=== PATIENT | male | born 1955 | race Caucasian/White ===

== ENCOUNTER 2021-12-26 11:34 | Emergency (ER) | payer MEDICARE, OTHER ==
[2021-12-26] MEDS ORDERED: PERCOCET TABLET 5/325MG ONE (11:43)
[2021-12-26] MEDS ORDERED: PERCOCET TABLET 5/325MG PO ONE (11:56)
[2021-12-26] MEDS ORDERED: CEFAZOLIN 2 GM-D5W BAG** 2 GM/50 ML ML IV STA (12:55)
[2021-12-26] MEDS ORDERED: Adacel Vial IM ONE ×2 (12:55→13:13)
[2021-12-26] MEDS ORDERED: KEFZOL IV ONE (13:04)
--- NOTE | 2021-12-26 13:24 | ERPHSYRPT ---
- History of Present Illness Time Seen by Provider: 12/26/21 11:44 Source: patient Exam Limitations: no limitations Patient Subjective Stated Complaint: Finger injury Triage Nursing Assessment: Patient brought back to ED via w/c and transferred to bed per self. Patient A+O x3. Patient's skin pink, warm and dry. Patient states he was feeding wood into the wood splitter when the wood splitter cut his left hand, 5th digit (pinky). Patient complains of left hand, 5th digit pain 4/10. Left hand 5th digit noted to have open area to each side of finger due to pressure from wood splitter. Bruising noted to entire finger and nail. Wedding ring cut off of left hand ring finger due to being smashed. Physician History: 66 years old male [id number] presented in the ER with a laceration on the medial aspect of left fifth digit while he was splitting wood and the splinter got on his finger. There was bleeding initially, minimal oozing on presentation. Able to move his finger. Moderate intensity sharp pain e specially with movements and better with being still. Also has swelling of left ring finger with ring in place. Occurred: just prior to arrival Method of Injury: direct blow Quality: sharpness Severity of Pain-Max: moderate Severity of Pain-Current: moderate Extremities Pain Location: 5th finger: left Modifying Factors: Improves With: immobilization. Worsens With: movement Allergies/Adverse Reactions: No Known Drug Allergies Allergy (Unverified 12/26/21 11:42) Hx Tetanus, Diphtheria Vaccination/Date Given: No Hx Influenza Vaccination/Date Given: No Hx Pneumococcal Vaccination/Date Given: No Immunizations Up to Date: Yes Travel Risk - International Travel Have you traveled outside of the country in past 3 weeks: No - Coronavirus Screening Are you exhibiting any of the following symptoms?: No Close contact with a COVID-19 positive Pt in past 14-21 Days: No - Vaccine Status Have you recieved a Covid-19 vaccination: Yes Cryptologist: Moderna - Vaccination Dates Date of 2cond Vaccination (if applicable): January 2021 Comment: Booster September 2021 - Review of Systems Constitutional: No Symptoms Ears, Nose, & Throat: No Symptoms Respiratory: No Symptoms Cardiac: No Symptoms Abdominal/Gastrointestinal: No Symptoms Genitourinary Symptoms: No Symptoms Musculoskeletal: Injury Skin: Skin Lesions Neurological: No Symptoms Endocrine: No Symptoms Hematologic/Lymphatic: No Symptoms Immunological/Allergic: No Symptoms - Past Medical History Pertinent Past Medical History: Yes Neurological History: No Pertinent History ENT History: No Pertinent History Cardiac History: Hypertension Respiratory History: No Pertinent History Endocrine Medical History: No Pertinent History Musculoskeletal History: No Pertinent History GI Medical History: No Pertinent History History: No Pertinent History Psycho-Social History: No Pertinent History Male Reproductive Disorders: No Pertinent History - Past Surgical History Past Surgical History: No Neuro Surgical History: No Pertinent History Cardiac: No Pertinent History Respiratory: No Pertinent History Gastrointestinal: No Pertinent History Genitourinary: No Pertinent History Musculoskeletal: No Pertinent History Male Surgical History: No Pertinent History - Social History Smoking Status: Never smoker Exposure to second hand smoke: No Drug Use: none Patient Lives Alone: No - Nursing Vital Signs Nursing Vital Signs: Initial Vital Signs Temperature 98.0 F 12/26/21 11:44 Pulse Rate 83 12/26/21 11:44 Respiratory Rate 18 12/26/21 11:44 Blood Pressure 134/79 12/26/21 11:44 O2 Sat by Pulse Oximetry 98 12/26/21 11:44 Pain Scale Pain Intensity 0 - Physical Exam General Appearance: no apparent distress, alert Neck Exam: normal inspection, supple, full range of motion Cardiovascular/Respiratory Exam: normal breath sounds, regular rate/rhythm Back Exam: normal inspection, normal range of motion Hand Exam: laceration (9cm medial aspect of left 5th digit with active oozing without spurting. Still able to move finger at proximal and distal interphalangeal joint. Intact distal sensations. Also have a 2 cm laceration on the lateral aspect of pulp.), soft tissue tenderness, swelling (Left ring finger with ring in place.) Neuro/Tendon Exam: normal sensation, normal motor functions Mental Status Exam: alert, oriented x 3, cooperative Skin Exam: normal color SpO2 Interpretation: normal SpO2: 99 O2 Delivery: Room Air Procedures - Laceration/Wound Repair Left Medial Finger Time of Procedure: 13:02 Wound Location: Left, hand Wound Length (cm): 9 Wound's Depth, Shape: into muscle, irregular Wound Explored: clean Irrigated: Yes Hibiclens Prep: Yes Anesthesia: local, 1% Lidocaine Volume Anesthetic (ccs): 8 Wound Debrided: minimal Wound Repaired With: sutures Suture Size/Type: 4-0 Number of Sutures: 17 Layer Closure?: No Sterile Dressing Applied?: Yes Splint Applied?: Yes - Additional Procedures Progress: Left fourth digit ring cutting. With the help of ring cutter it is removed. Swelling improved. No bony tenderness. Ordered Tests: Active Orders 24 hr Category Date Time Status IV Insertion STAT Care 12/26/21 12:55 Active HAND (MINIMUM 3 VIEWS) Stat Exams 12/26/21 Taken Medication Summary Generic Name Dose Route Start Last Admin Trade Name Freq PRN Reason Stop Dose Admin Cefazolin Sodium/Dextrose 2 gm in 50 mls @ 100 mls/hr 12/26/21 12:55 12/26/21 13:07 Cefazolin 2 Gm-D5w Bag IV 12/26/21 13:24 100 ml/hr STAT STA 100 mls/hr Administration Discontinued Medications Generic Name Dose Route Start Last Admin Trade Name Freq PRN Reason Stop Dose Admin Diphtheria/Tetanus/Acell Pertussis 0.5 ml 12/26/21 12:55 12/26/21 13:14 Tdap --Diph,Pertuss(Acell),Tet Vac/Pf 0.5 Ml Vial IM 12/26/21 12:56 0.5 ml .ONCE ONE Administration Diphtheria/Tetanus/Acell Pertussis Confirm 12/26/21 13:13 Tdap --Diph,Pertuss(Acell),Tet Vac/Pf 0.5 Ml Vial Administered 12/26/21 13:14 Dose 0.5 ml IM .STK-MED ONE Cefazolin Sodium/Dextrose Confirm 12/26/21 13:04 Kefzol 1 Gm/50 Ml Premix Administered 12/26/21 13:05 Dose 2 gm in 100 mls @ ud IV .STK-MED ONE Oxycodone/Acetaminophen Confirm 12/26/21 11:43 Oxycodone Hcl/Apap 5 Mg/325 Mg Tablet Administered 12/26/21 11:44 Dose 1 tab .ROUTE .STK-MED ONE Oxycodone/Acetaminophen 1 tab 12/26/21 11:56 12/26/21 11:58 Oxycodone Hcl/Apap 5 Mg/325 Mg Tablet PO 12/26/21 11:57 1 tab STAT ONE Administration - Progress Progress: improved Progress Note: 12/26/21 13:23 Given symptomatic treatment for pain. Updated tetanus. Given a dose of Kefzol IV. Discussed with Dr. Rodriguez, who has reviewed x-ray films and does have a fracture distal phalanx and some chip fracture on the proximal phalanx as well. Recommended primary closure which is done. Placed in a splint, will give pain medication and antibiotics to go home and patient will follow up with hand surgery Tuesday. Counseled pt/family regarding: diagnosis, need for follow-up, rad results - Departure Departure Disposition: Home Clinical Impression: Finger laceration, Crushing injury of finger of left hand Condition: Stable Critical Care Time: No Referrals: JACINTO GARCIA MD [Primary Care Provider] - Follow Up with PCP/3 days GOPI GRAMAJO MD [NON-STAFF PHY W/O PRIVILEGES] - Follow up/PCP as directed (Call Tuesday for appointment later that day) Instructions: Crush Injury (DC), Common Finger Injuries (DC) Additional Instructions: Take pain medications as needed. Keep it elevated. Intermittent ice application. Follow-up with hand surgery for reevaluation Tuesday. Continue with antibiotics. Return to ER for excruciating pain, swelling, fever chills, bluish discoloration of the finger etc. Prescriptions: Hydrocodone/Acetaminophen [Hydrocodone-Acetamin 5-325 mg] 1 tab PO Q6HPRN PRN 3 Days #12 tablet MDD 4 PRN Reason: Pain Cephalexin Mh 500 mg [Keflex 500 mg] 500 mg PO TID #21 cap
[2021-12-26 13:43] VITALS: BP 141/82; PULSE 68; O2SAT 96
--- NOTE | 2021-12-26 18:05 | XRAY ---
Indication: 5th finger laceration. Comparison: None 3 view left hand demonstrates minimally displaced distal 5th phalanx tip and base fracture with soft tissue swelling. Elsewhere osteopenia and moderate/advanced degenerative changes all IP joints and [id number] metacarpal. Comment: Preliminary interpretation made by [facility]. No critical discrepancy.
== END 2021-12-26 13:47 | disposition home or self-care (01) ==
LOC: ED 11:34
DX: S61.217A Laceration without foreign body of left little finger without damage to nail, initial encounter (principal); W31.89XA Contact with other specified machinery, initial encounter; R22.9 Localized swelling, mass and lump, unspecified; I10 Essential (primary) hypertension; Z79.891 Long term (current) use of opiate analgesic
CPT/HCPCS: 12004; 36000; 73130; 90471; 90715; 99284; J0690; A9270-GY

== ENCOUNTER 2024-12-12 09:17 | Day surgery (SDC) | payer MEDICARE, OTHER ==
[2024-12-12] MEDS ORDERED: LIDOCAINE HCL 2% 100 MG/5 ML IJ ONE (09:18)
[2024-12-12] MEDS ORDERED: Depo-Medrol 40 MG/ML IM ONE (09:18)
[2024-12-12] MEDS ORDERED: propofoL IV ONE (10:20)
--- NOTE | 2024-12-12 12:12 | XRAY ---
Indication: Left L3-L5 MBB. Intraoperative fluoroscopy provided for 12 seconds. Single digital spot image submitted for interpretation demonstrates posterior needle tips projecting over the expected left L3-L5 nerve roots. Correlate with intraoperative findings/report.
--- NOTE | 2024-12-12 12:55 | XRAY ---
12 seconds of fluoroscopy was used in surgery for a left L3-L5 MBB.
== END 2024-12-12 11:00 | disposition home or self-care (01) ==
LOC: SDC-PAIN 09:17
PROVIDERS: ATTEND Psychiatry & Neurology Pain Medicine
DX: M47.816 Spondylosis without myelopathy or radiculopathy, lumbar region (principal)
CPT/HCPCS: 64493; 64494; 72020; 77002; J2704

== ENCOUNTER 2025-01-09 09:57 | Day surgery (SDC) | payer MEDICARE, OTHER ==
[2025-01-09] MEDS ORDERED: BUPIVACAINE 0.5% VIAL IJ ONE (09:58)
[2025-01-09] MEDS ORDERED: propofoL IV ONE (12:01)
--- NOTE | 2025-01-09 13:21 | XRAY ---
Indication: Left L3-L5 MBB. Intraoperative fluoroscopy provided for 10 seconds. Single digital spot image submitted for interpretation demonstrates posterior needle tips projecting over expected left L3-L5 nerve roots. Correlate with intraoperative findings/report.
--- NOTE | 2025-01-09 14:58 | XRAY ---
10 seconds of fluoroscopy was used in surgery for a left L3-L5 MBB.
== END 2025-01-09 12:35 | disposition home or self-care (01) ==
LOC: SDC-PAIN 09:57
PROVIDERS: ATTEND Psychiatry & Neurology Pain Medicine
DX: M47.816 Spondylosis without myelopathy or radiculopathy, lumbar region (principal)
CPT/HCPCS: 64493; 64494; 72020; 77002; J2704

== ENCOUNTER 2025-01-30 12:38 | Day surgery (SDC) | payer MEDICARE, OTHER ==
[2025-01-30] MEDS ORDERED: LIDOCAINE HCL 1% AMPUL 5 ML IJ ONE (12:39)
[2025-01-30] MEDS ORDERED: BUPIVACAINE 0.5% VIAL IJ ONE (12:39)
[2025-01-30] MEDS ORDERED: Depo-Medrol 40 MG/ML IM ONE (12:39)
[2025-01-30] MEDS ORDERED: Lactated Ringers 500 ML IV ONE (12:57)
[2025-01-30] MEDS ORDERED: propofoL IV ONE (14:45)
--- NOTE | 2025-01-30 16:21 | XRAY ---
Indication: Left L3-L5 RFA. Intraoperative fluoroscopy provided for 27 seconds. 4 digital spot image submitted for interpretation demonstrates posterior needle tips projecting over expected left L3-L5 nerve roots. Correlate with intraoperative findings/report.
--- NOTE | 2025-01-30 16:25 | XRAY ---
27 seconds of fluoroscopy was used in surgery for a left L3-L5 RFA.
== END 2025-01-30 15:21 | disposition home or self-care (01) ==
LOC: SDC-PAIN 12:38
PROVIDERS: ATTEND Psychiatry & Neurology Pain Medicine
DX: M47.816 Spondylosis without myelopathy or radiculopathy, lumbar region (principal)
CPT/HCPCS: 64635; 64636; 72100; 77002; J2704